=== PATIENT | female | born 1960 | race Caucasian/White ===

== ENCOUNTER → 2018-05-16 15:12 | Outpatient (CLI) | payer OTHER, SELFPAY ==
--- NOTE | 2018-05-16 15:26 | MM_ITS ---
MM Dig screening mamm BI w/CAD CAD Screening COMPARISON: Digital mammograms with CAD 03/26/2017 and 12/28/2015 INDICATION: There is no personal or family history of breast cancer. There has been a previous cyst aspiration right breast. TECHNIQUE: Standard CC and MLO images were obtained. R2 CAD reviewed. FINDINGS: Scattered fibroglandular densities are seen throughout both breast on a background of fatty type breast parenchyma. There are few scattered benign-appearing calcifications in each breast. There is no suspicious lesion and no suspicious microcalcifications. IMPRESSION: Stable exam with no suspicious lesion seen BI-RADS Category: 2 Benign Finding(s) RECOMMENDED FOLLOW-UP: 1YR - 1 YEAR FOLLOW-UP (A letter has been sent to the patient regarding results of the study.)
== END ==
PROVIDERS: PCP Family Medicine; Visit Provider Family Medicine
DX: Z12.31 Encounter for screening mammogram for malignant neoplasm of breast (principal)
CPT/HCPCS: 77067

== ENCOUNTER → 2019-07-04 14:49 | Outpatient (CLI) | payer OTHER, SELFPAY ==
--- NOTE | 2019-07-04 15:26 | MM_ITS ---
PROCEDURE: MM DIG SCREENING MAMM BI W/CAD BILATERAL DIGITAL BREAST TOMOSYNTHESIS INCLUDED Patient Age:58Y CLINICAL INDICATION: SCREENING. No hormones, no new complaints. Previous cyst aspiration, stereotactic procedure/biopsy right breast . COMPARISON: BC MAMM SCREEN BILAT DIG PNL from 07/26/2010 BC MAMM SCREEN BILAT DIG PNL from 07/28/2011 BC MAMM SCREEN BILAT DIG PNL from 08/21/2012 AB MAMM SCREEN BILAT DIG PNL from 08/26/2013 [facility] DIG MAMM-SCREEN MERLYN from 11/25/2014 [facility] DIG MAMM-SCREEN MERLYN from 12/28/2015 [facility] DIG MAMM-SCREEN MERLYN W/CAD from 03/26/2017 [facility] MM Dig screening mamm BI w/CAD from 05/16/2018 TECHNIQUE: Standard CC and MLO images were obtained. R2 CAD reviewed. Bilateral digital breast tomosynthesis included FINDINGS: scattered fibroglandular elements [id number], most evident upper outer quadrant and retroareolar regions. Of stable mild asymmetry with no suspicious new areas or dominant masses. No suspicious calcifications Right breast. Stable. Unremarkable. Left breast. Stable asymmetric fibroglandular tissue upper outer quadrant left breast is similar/unchanged to multiple previous studies no new areas of concern IMPRESSION: Stable bilateral mammogram. Stable mild asymmetry Bilateral follow-up1 year recommended and encouraged BI-RAD Category: 2 Benign Finding(s) FOLLOW-UP: 1YR 1 Year Follow-up (A letter has been sent to the patient regarding results of the study.) Dictated by: Prince Torres MD 07/10/2019 11:19 Electronically signed by Prince Torres MD in [place] 07/10/2019 11:19
== END ==
PROVIDERS: PCP Family Medicine; Visit Provider Family Medicine
DX: Z12.31 Encounter for screening mammogram for malignant neoplasm of breast (principal)
CPT/HCPCS: 77063; 77067

== ENCOUNTER → 2019-07-25 09:55 | Outpatient (CLI) | payer OTHER, SELFPAY ==
--- NOTE | 2019-07-25 10:02 | US_ITS ---
PROCEDURE: US SOFT TISSUE HEAD AND NECK CLINICAL INDICATION: SWELLING,MASS, COMPARISON: No exams were available for comparison FINDINGS: Submandibular and parotid glands have an unremarkable appearance. In the left side of the neck at the area of the palpable abnormality there is an oval 2.8 x 1 cm area of slight heterogeneous decreased echogenicity which may represent a lipoma. Small nodes are present deep to this region. IMPRESSION: Palpable abnormality left neck appears to represent a lipoma Dictated by: Harish Kennedy MD 07/25/2019 14:25 Electronically signed by Harish Kennedy MD in [place] 07/25/2019 14:25
== END ==
PROVIDERS: PCP Family Medicine; Visit Provider Family Medicine
DX: R22.1 Localized swelling, mass and lump, neck (principal)
CPT/HCPCS: 76536

== ENCOUNTER → 2019-12-24 15:06 | Outpatient (CLI) | payer OTHER, SELFPAY ==
--- NOTE | 2019-12-24 15:10 | MR_ITS ---
PROCEDURE: MR CERVICAL SPINE WO CON CLINICAL INDICATION: BRACHIAL NEURITIS OF RIGHT UPPER EXTREMITY NUMBNESS DOWN RT ARM. 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 BURNING PAIN DOWN ARM WITH PAIN AND TINGLING. NO PRIOR. COMPARISON: No exams were available for comparison TECHNIQUE: Standard multiplanar multiecho sequences are performed without contrast. 3-D MIP and myelographic images are also rendered and reviewed FINDINGS: There is slight reversal cervical lordosis which could be due to patient positioning or muscle spasm. The craniocervical junction has an unremarkable appearance. C2-C3: Unremarkable. C3-C4: Minimal prominence of the posterior longitudinal ligament without impingement. C4-C5: 3 mm anterolisthesis of C4. Mild facet hypertrophic change on the right with mild right-sided foraminal narrowing. There is mild prominence of the posterior longitudinal ligament versus a small central disc protrusion. This results in narrowing of the canal at 10 mm with minimal abutment of the anterior aspect of the cord without significant displacement. C5-C6: Degenerative disc disease with minimal bulging disc. There are small disc osteophyte complexes at the uncovertebral region on both sides along with mild facet hypertrophy with severe left and moderate right foraminal narrowing also with narrowing of the canal at 11 mm and bilateral lateral recess narrowing slightly greater on the right. C6-C7: Degenerative disc disease with 2 mm retrolisthesis of C6 with minimal bulging disc and mild bilateral foraminal narrowing left greater than right. There is narrowing of the canal at 10 mm. C7-T1: Unremarkable No extruded herniated disc evident. IMPRESSION: Abnormal MRI of the cervical spine with multilevel cervical spondylosis with canal stenosis and lateral recess and foraminal narrowing. Please see above for detailed description at each level. No extruded herniated disc evident. Dictated by: Harish Kennedy MD 12/25/2019 11:59 Harish Kennedy MD in [place] 12/25/2019 11:59
== END ==
PROVIDERS: PCP Family Medicine; Visit Provider Orthopaedic Surgery
DX: M54.2 Cervicalgia (principal); M54.12 Radiculopathy, cervical region
CPT/HCPCS: 72141; 76376

== ENCOUNTER → 2020-11-08 10:49 | Outpatient (CLI) | payer OTHER, SELFPAY ==
--- NOTE | 2020-11-08 10:51 | MM_ITS ---
PROCEDURE INFORMATION: Exam: MG Screening 3D Mammography Exam date and time: 11/08/2020 10:51 AM Age: 60 years old Clinical indication: Encounter for screening mammogram for malignant neoplasm of breast TECHNIQUE: Imaging protocol: Screening tomosynthesis and 2D mammography including computer-aided detection (CAD) when performed. COMPARISON: 1. MG MM DIG SCREENING MAMM BI W/CAD 07/04/2019 3:28 PM 2. MG [facility] MM Dig screening mamm BI w/CAD 05/16/2018 3:49 PM FINDINGS: MAMMOGRAPHY: Breast composition: The breast tissue is composed of scattered areas of fibroglandular density. Mass: None. Architectural distortion: None. Calcifications: No suspicious calcifications. Asymmetric density: None. Skin thickening: None. Axillary adenopathy: None. IMPRESSION: No mammographic evidence of malignancy. Annual screening is recommended unless otherwise clinically indicated. ASSESSMENT: BI-RADS Category 1: Negative
== END ==
PROVIDERS: PCP Family Medicine; Visit Provider Family Medicine
DX: Z12.31 Encounter for screening mammogram for malignant neoplasm of breast (principal)
CPT/HCPCS: 77063; 77067

== ENCOUNTER → 2022-02-01 10:23 | Outpatient (CLI) | payer OTHER, SELFPAY ==
--- NOTE | 2022-02-01 10:29 | MM_ITS ---
PROCEDURE INFORMATION: Exam: MG Bilateral Screening 3D Mammography Exam date and time: 02/01/2022 10:26 AM Age: 61 years old Clinical indication: Screening examination TECHNIQUE: Imaging protocol: Bilateral Screening tomosynthesis and 2D mammography including computer-aided detection (CAD) when performed. COMPARISON: 1. MG MM DIG SCREENING MAMM BI W/CAD 11/08/2020 10:48 AM 2. MG MM DIG SCREENING MAMM BI W/CAD 07/04/2019 3:28 PM 3. MG [facility] MM Dig screening mamm BI w/CAD 05/16/2018 3:49 PM FINDINGS: MAMMOGRAPHY: Breast composition: There are scattered areas of fibroglandular density. Mass: No suspicious masses. Architectural distortion: No suspicious distortion. Calcifications: No suspicious calcifications. Asymmetric density: None. Skin thickening: None. Axillary adenopathy: None. IMPRESSION: No mammographic evidence of malignancy. Annual screening is recommended unless otherwise clinically indicated. ASSESSMENT: BI-RADS Category 1: Negative
== END ==
PROVIDERS: PCP Family Medicine; Visit Provider Family Medicine
DX: Z12.31 Encounter for screening mammogram for malignant neoplasm of breast (principal)
CPT/HCPCS: 77063; 77067

== ENCOUNTER → 2022-08-28 11:59 | Outpatient (CLI) | payer OTHER, SELFPAY ==
--- NOTE | 2022-08-28 12:08 | XR_ITS ---
FINAL REPORT CLINICAL HISTORY: PAIN-- noobvious inj FINDINGS: LEFT SHOULDER 3 views of the left shoulder were obtained. There is no acute fracture or dislocation. There are mild degenerative changes of the acromioclavicular and glenohumeral joints. Soft tissues are unremarkable. IMPRESSION: No acute bony abnormality. Reviewed, Interpreted and Dictated by Montez Francisco III, MD Transcribed by Lucila Jones Authenticated and [facility]
== END ==
PROVIDERS: PCP Family Medicine; Visit Provider Family Medicine
DX: M25.512 Pain in left shoulder (principal)
CPT/HCPCS: 73030

== ENCOUNTER → 2022-12-14 13:33 | Outpatient (CLI) | payer OTHER, SELFPAY ==
--- NOTE | 2022-12-14 13:39 | US_ITS ---
FINAL REPORT CLINICAL HISTORY: MASS IN NECK COMPARISON: 07/25/2019 FINDINGS: Ultrasound soft tissues neck: Ultrasound examination of the soft tissues of the neck is compared to a prior exam dated July 2019. The left neck mass adjacent to the left submandibular gland seen on the prior exam is somewhat larger than noted on the prior exam, today measuring 3.7 x 1.6 cm in size. The echogenicity remains suggestive of a enlarging lipoma, although other etiologies cannot be excluded. The submandibular and parotid glands remain unremarkable in appearance. IMPRESSION: Left neck mass adjacent to the left submandibular gland seen on the prior ultrasound of 2019 is somewhat larger than noted. The echogenicity remains suggestive of an enlarging lipoma, although other etiologies cannot be excluded. Correlation with CT to evaluate might be helpful if clinically indicated. Reviewed, Interpreted and Dictated by Montez Francisco III, MD Transcribed by Shadia Walker Authenticated and [facility]
== END ==
LOC: RAD 13:33
PROVIDERS: PCP Family Medicine; Visit Provider Family Medicine
DX: R22.1 Localized swelling, mass and lump, neck (principal)
CPT/HCPCS: 76536

== ENCOUNTER → 2023-03-02 10:55 | Outpatient (CLI) | payer OTHER, SELFPAY ==
--- NOTE | 2023-03-02 10:58 | MM_ITS ---
PROCEDURE INFORMATION: Exam: MG Bilateral Screening 3D Mammography Exam date and time: 03/02/2023 10:54 AM Age: 62 years old Clinical indication: Screening examination; No personal or family history of breast cancer TECHNIQUE: Imaging protocol: Bilateral Screening tomosynthesis and 2D mammography including computer-aided detection (CAD) when performed. COMPARISON: MG MM DIG SCREENING MAMM BI W/CAD 02/01/2022 10:29 AM FINDINGS: MAMMOGRAPHY: Breast composition: There are scattered areas of fibroglandular density. Mass: None. Architectural distortion: None. Calcifications: No suspicious calcifications. Asymmetric density: None. Skin thickening: None. Axillary adenopathy: None. IMPRESSION: No mammographic evidence of malignancy. Annual screening is recommended unless otherwise clinically indicated. ASSESSMENT: BI-RADS Category 1: Negative
== END ==
PROVIDERS: PCP Family Medicine; Visit Provider Family Medicine
DX: Z12.31 Encounter for screening mammogram for malignant neoplasm of breast (principal)
CPT/HCPCS: 77063; 77067

== ENCOUNTER 2024-01-15 14:56 | Outpatient (POV) | payer OTHER, SELFPAY | END 2024-01-15 23:59 | disposition home or self-care (01) | LOC: SC 14:59 | PROVIDERS: PCP Family Medicine; Visit Provider Dermatology | DX: Z00.00 Encounter for general adult medical examination without abnormal findings (principal) ==

== ENCOUNTER 2024-03-12 09:25 | Outpatient (CLI) | payer MEDICARE, OTHER, SELFPAY ==
--- NOTE | 2024-03-12 09:33 | MM_ITS ---
PROCEDURE INFORMATION: Exam: MG Bilateral Screening 3D Mammography Exam date and time: 03/12/2024 9:32 AM Age: 63 years old Clinical indication: Screening examination TECHNIQUE: Imaging protocol: Bilateral Screening tomosynthesis and 2D mammography including computer-aided detection (CAD) when performed. COMPARISON: 1. MG MM DIG SCREENING MAMM BI W/CAD 03/02/2023 10:54 AM 2. MG MM DIG SCREENING MAMM BI W/CAD 02/01/2022 10:29 AM FINDINGS: MAMMOGRAPHY: Breast composition: There are scattered areas of fibroglandular density. Mass: None. Architectural distortion: None. Calcifications: No suspicious calcifications. Asymmetric density: None. Skin thickening: None. Axillary adenopathy: None. IMPRESSION: No mammographic evidence of malignancy. Annual screening is recommended unless otherwise clinically indicated. ASSESSMENT: BI-RADS Category 1: Negative.
--- NOTE | 2024-03-12 09:33 | XR_ITS ---
FINAL REPORT CLINICAL HISTORY: screening COMPARISON: None FINDINGS: Using L1-4, the bone mineral density of the spine is 1.001 g/cm2, corresponding to T-score of -0.4 which is within normal limits but likely falsely elevated secondary to hypertrophic changes. Using the left hip, the bone mineral density of the femoral neck is 0.718 g/cm2, corresponding to a T-score of -1.2 which is consistent with low bone density. Using the right forearm, the bone mineral density of the 1/3 is 0.505 g/cm2, corresponding to a T-score of -3.1 which is consistent with osteoporosis. FRAX 10 year fracture risk is 0.7% for a hip fracture and 8.1% for a major osteoporotic fracture. NOTE: T-score: Standard deviation compared with peak bone mass of young adult mean. *Following the recommendations of the International Society of Bone densitometry, classification of hip BMD is based on the lower of two T-scores; total hip or femoral neck. IMPRESSION: Diminished bone mineral density consistent with osteoporosis. Reviewed, Interpreted and Dictated by Montez Francisco III, MD Transcribed by Suyapa Love Authenticated and [facility]
== END 2024-03-12 23:59 | disposition home or self-care (01) ==
LOC: RAD 09:27
PROVIDERS: PCP Family Medicine; Visit Provider Family Medicine
DX: Z12.31 Encounter for screening mammogram for malignant neoplasm of breast (principal); Z78.0 Asymptomatic menopausal state
CPT/HCPCS: 77063; 77067; 77080

== ENCOUNTER 2025-03-25 12:47 | Outpatient (CLI) | payer MEDICARE, OTHER, SELFPAY ==
--- NOTE | 2025-03-25 12:51 | MM_ITS ---
PROCEDURE INFORMATION: Exam: MG Bilateral Screening 3D Mammography Exam date and time: 03/25/2025 12:59 PM Age: 64 years old Clinical indication: Screening examination TECHNIQUE: Imaging protocol: Bilateral Screening tomosynthesis and 2D mammography including computer-aided detection (CAD) when performed. COMPARISON: MG MM DIG SCREENING MAMM BI W/CAD 03/12/2024 9:32 AM FINDINGS: MAMMOGRAPHY: Breast composition: There are scattered areas of fibroglandular density. Mass: None. Architectural distortion: None. Calcifications: No suspicious calcifications. Asymmetric density: None. Skin thickening: None. Axillary adenopathy: None. IMPRESSION: No mammographic evidence of malignancy. Annual screening is recommended unless otherwise clinically indicated. ASSESSMENT: BI-RADS Category 1: Negative.
--- OUTSIDE RECORDS SUMMARY | 2025-03-25 13:23 | XMS_ITS | Clinical Summary ---
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 Medications No information available. Medications Administered No information available. Allergies, Adverse Reactions, Alerts No information available. Results No information available. Plan of Care No information available. Procedures No information available. Vital Signs No information available. Immunizations No information available. Advance Directives No information available.
--- OUTSIDE RECORDS SUMMARY | 2025-03-25 13:24 | XMS_ITS | Clinical Summary ---
Author Organization [facility] Address [address] [place] [address] Care Team Providers Care Over Hauler Helper Name Role Phone Yumiko Salmeron MD Primary Care Provider + Allergies Active Allergy Reactions Criticality Noted Date Comments Sulfa Antibiotics Hives 09/28/2015 Medications meclizine (ANTIVERT) 25 MG tablet Take 25 mg by mouth 3 (Three) Times a Day As Needed for dizziness. Active lisinopril (PRINIVIL,ZESTRI L) 10 MG tablet Take 1 tablet by mouth Daily. 90 tablet 04/09/2019 Active naproxen (NAPROSYN) 250 MG tablet Take 250 mg by mouth 2 (Two) Times a Day As Needed. Active Active Problems Problem Noted Date Diagnosed Date Allergic rhinitis 01/30/2020 Benign essential hypertension 01/30/2020 Contact dermatitis due to plants, except food Fall on same level from slipping, tripping or st umbling 01/30/2020 Gallstone 01/30/2020 Gastroesophageal reflux disease 01/30/2020 Generalized osteoarthritis 01/30/2020 Low back pain 01/30/2020 Hip pain 01/30/2020 M ni re's disease 01/30/2020 Restless legs 01/30/2020 Vertiginous syndrome 01/30/2020 Chest pain 09/28/2015 HTN (hypertension) 09/28/2015 Cardiac enzymes elevated 09/28/2015 Overview (09/28/2015): CKMB and CK on 08/05/15 Family History Medical History Relation Name Comments Heart disease Brother Diabetes Father Heart disease Father Cancer Mother Multiple myeloma Mother Relation Name Status Comments Brother Father Mother Social History Tobacco Use Types Packs/Day Years Used Date Smoking Tobacco: Never Smokeless Tobacco: Never Tobacco Cessation:Counseling Given: No Alcohol Use Standard Drinks/Week Comments Yes 5 (1 standard drink = 0.6 oz pur e alcohol) Abuse Screen Answer Date Recorded Unsafe at Home or Work/School Not on file Feels Threatened by Someone? Not on file 01/2023 Does Anyone Keep You from Co ntacting Others or Doint Things Outside the Home? Not on file 02/12/2023 Physical Sign of Abuse Present Not on file 1 Housing Stability Answer Date Recorded Current Living Arrangements Not on file 01/2023 Potentially Unsafe Housing Conditions Not on bjorn e 02/12/2023 Family and Community Support Answer Tip e Recorded Help with Day-to-Day Activities Not on file 02/12/2023 Lonely or Isolated Not on file 02/12/2023 Employment Answer Date Recorded Do you want help finding or keeping work or a song b? Not on file 02/12/2023 Disabilities Answer Date Recorded Concentrating, Remembering, or Making Decisions Difficulty Not on file 02/12/2023 Doing Errands Independently Difficulty Not on fi le 02/12/2023 Education Answer Date Recorded Help with school or training? Not on file Preferred Language Not on file 02/12/2023 Comments No Sex and Gender Information Value Date Recorded Sex Assigned at Not on file Legal Sex Female 10:42 AM EDT Gender Identity Not on file Sexual Orientation Not on file Last Filed Vital Signs Vital Sign Reading Time Taken Comments Blood Pressure 101/65 03/14/2018 11:41 AM EST Pulse 97 04/13/2020 2:28 PM EST Temperature 36.4 C (97.5 F) 01/30/2020 2:03 PM EDT Respiratory Rate 15 01/30/2020 2:03 PM EDT Oxygen Saturation 98% 04/13/2020 2:28 PM EST Inhaled Oxygen Concentration - - Weight 84.4 kg (186 lb) 04/13/2020 2:28 PM EST Height 160 cm (5' 2.99 ) 04/13/2020 2:28 PM EST Body Mass Index 32.96 04/13/2020 2:28 PM EST Plan of Treatment Health Maintenance Due Date Last Done Comments DXA SCAN 1958 COLOGUARD 08/01/2003 COLON CANCER SCREENING 5 YEA R SIGMOIDOSCOPY 08/01/2003 COLONOSCOPY 08/01/2003 COLORECTAL CANCER SCREENING 08/01/2003 CT COLONOGRAPHY 08/01/2003 FECAL OCCULT BLOOD TEST 08/01/2003 FIT Testing (1 year) 08/01/2003 Pneumococcal Vaccine 50+ (1 of 1 - PCV) 2008 MAMMOGRAM 08/27/2015 08/26/2013 ANNUAL PHYSICAL 01/31/2017 HEPATITIS C SCREENING 01/31/2017 ZOSTER VACCINE (2 of 2) 06/10/2019 04/15/2019 INFLUENZA VACCINE 12/05/2024 02/01/2016, , 05/07/2012 COVID-19 Vaccine (1 - season) 2025 TDAP/TD VACCINES (2 - Td or Tdap) 01/31/2026 016 Procedures Procedure Name Priority Date/Time Associated Diagnosis Comments MAMMO SCREENING BILATERAL W CAD Routine 08/26/2013 9:10 AM EDT from Last 3 Months or Most Recently Relevant to Health Maintenance Results * MAMMOGRAPHY SCREENING BILATERAL (08/26/2013 9:10 AM EDT) Anatomical Region Laterality Modality Breast Bilateral Mammography 08/26/2013 9:10 AM EDT Narrative 08/26/2013 1:40 PM EDT BILATERAL SCREENING MAMMOGRAM WITH TOMOSYNTHESIS HISTORY: Screening Mammography. TECHNIQUE: Low Dose full field Digital Breast Tomosynthesis examination was performed with 2D and 3D acquisitions. Examination is read in conjunction with computer aided detection. COMPARISON: Examination is compared to prior examination dating back to 07/20/2009. FINDINGS: The breast tissue is composed of scattered fibroglandular densities. No suspicious masses, microcalcifications or areas of architectural distortion are present. IMPRESSION- Negative bilateral mammogram. RECOMMENDATION: Continue annual screening mammography. BI-RADS CATEGORY I, NEGATIVE. CAD was utilized. The standard false-negative rate of mammography is between 10 and 25%. Complex patterns or increased breast density will markedly elevate the false-negative rate of mammography. A letter, in lay terminology, with the results of this exam will be mailed to the patient. Airline Security Representative- TAMERA BENAVIDES Reading Radiologist- MEGAN LEVINE Releasing Radiologist- MEGAN LEVINE Released Date Time- 08/26/13 1456 Yumiko Salmeron MD IMG MAMMOGRAPHY ORDERABL ES Final Result from Last 3 Months or Most Recently Relevant to Health Maintenance Insurance [facility] Care Teams Over Hauler Helper Relationship Specialty Start Date End Date Yumiko Salmeron MD [address] [place] [id number] PCP - General Family Medicine 03/14/18
== END 2025-03-25 23:59 | disposition home or self-care (01) ==
LOC: RAD 12:49
PROVIDERS: PCP Family Medicine; Visit Provider Family Medicine
DX: Z12.31 Encounter for screening mammogram for malignant neoplasm of breast (principal); R92.323 Mammographic fibroglandular density, bilateral breasts
CPT/HCPCS: 77063; 77067